=== PATIENT | male | born 1965 | race Caucasian/White ===

== ENCOUNTER 2017-02-14 09:57 | Emergency (ER) | payer SELFPAY ==
[~2017-02-14] VITALS: Ht 177.8 cm; Wt 78.0 kg
[2017-02-14 10:02] VITALS: BP 159/86; PULSE 75; RESP 17; TEMP 98; O2SAT 99
[2017-02-14 11:36] LABS: BLOOD, URINE SMALL (NEG); GLUCOSE,URINE NEG (NEG); KETONE, URINE NEG (NEG); NITRITE,URINE NEG (NEG)
[2017-02-14 11:45] LABS: METHOD OF COLLECTION CLEAN CATCH; URINE COLOR YELLOW (YELLW/STRAW)
[2017-02-14 11:46] LABS: COMMENT (UR) CULT NOT INDICATED; CULTURE IF INDICATED CULT NOT INDICATED; SQUAMOUS EPITHELIAL CELL URINE 0-5 /hpf (0-5)
--- NOTE | 2017-02-14 12:34 | RADRPT ---
EXAM DATE/TIME: 02/14/2017 17:02 [place] COMPARISON: No previous studies available for comparison. INDICATIONS : Testicular pain. MEDICAL HISTORY : Testicular pain. SURGICAL HISTORY : None. ENCOUNTER: Initial ACUITY: >1 year PAIN SCORE: 2/10 LOCATION: Bilateral testicles. MEASUREMENTS: RIGHT TESTICLE: 4.4 x 4.1 x 28cm LEFT TESTICLE: 3.5 x 3.0 x 3.5cm FINDINGS: RIGHT TESTICLE: Homogeneous echotexture without intra or extratesticular mass. Blood flow is symmetric and within no rmal limits. Positive hydrocele without varicocele. Epididymal cyst measures 1.5 x 1.0 x 1.8 cm and 9 .3 x 5.3 x 5.2 cm. LEFT TESTICLE: Homogeneous echotexture without intra or extratesticular mass. Blood flow is symmetric and within no rmal limits. There is a hydrocele. No varicocele. Epididymis is within normal limits. SCROTUM: Within normal limits. CONCLUSION: 1. Large right epididymal cysts. 2. Bilateral hydroceles. Elton Wolf MD on February 14, 2017 at 12:32 Board Certified Radiologist. This report was verified electronically.
[2017-02-14] MEDS ORDERED: CIPR-9 PO (12:57)
--- NOTE | 2017-02-14 12:57 | PD ---
HPI Chief Complaint: Complaint Time Seen by Provider: 11:45 Travel History International Travel<30 days: No Contact w/Intl Traveler<30days: No Traveled to known affect area: No History of Present Illness HPI 51-year-old male with chief complaint of hematuria 2 days. Patient also reports right sided testicular pain and swelling which is ongoing for the last 2 years. He reports he was told he had a hydrocele as a child. He is not followed by a urologist. Patient is uninsured. He reports the pain is constant , nonradiating, no aggravating or alleviating factors. Severity 4/10. He reports the pain in the testicle has steadily increased over the last several days. He denies fever, chills, abdominal pain, nausea, vomiting, or penile discharge. [facility] Past Medical History Diminished Hearing: No Musculoskeletal: Yes (BACK) Immunizations Current: No Tetanus Vaccination: Unknown Influenza Vaccination: No Past Surgical History Other Surgery: Yes (BACK) Social History Alcohol Use: Yes (3 DAILY) Tobacco Use: No Substance Use: Yes (POT) Allergies-Medications (Allergen,Severity, Reaction): Coded Allergies: Penicillins (Verified Allergy, Unknown, RASH, 02/14/17) Reported Meds & Prescriptions Reported Meds & Active Scripts Active No Active Prescriptions or Reported Medications Review of Systems Except as stated in HPI: all other systems reviewed are Neg General / Constitutional: No: Fever Eyes: No: Visual changes HENT: No: Headaches Cardiovascular: No: Chest Pain or Discomfort Respiratory: No: Shortness of Breath Gastrointestinal: No: Abdominal Pain Genitourinary: No: Dysuria Physical Exam Narrative GENERAL: Alert, well-appearing male in no acute distress SKIN: Focused skin assessment warm/dry. HEAD: Atraumatic. Normocephalic. EYES: Pupils equal and round. No scleral icterus. No injection or drainage. ENT: No nasal bleeding or discharge. Mucous membranes pink and moist. NECK: Trachea midline. No JVD. CARDIOVASCULAR: Regular rate and rhythm. No murmur appreciated. RESPIRATORY: No accessory muscle use. Clear to auscultation. Breath sounds equal bilaterally. GASTROINTESTINAL: Abdomen soft, non-tender, nondistended. Hepatic and splenic margins not palpable. GENITOURINARY: Circumcised. Testes descended bilaterally without evidence of rotation. Right testicle grossly enlarged, smooth, no palpable mass. No lesions or erythema. No urethral discharge. Data Data Last Documented VS Vital Signs Date Time Temp Pulse Resp B/P Pulse Ox O2 Delivery O2 Flow Rate FiO2 02/14/17 11:13 02/14/17 10:02 98.0 75 17 99 Orders Urinalysis - C+S If Indicated (02/14/17 11:26) Us Testicles W Doppler (02/14/17 ) Mandatory Outpatient Referral (02/14/17 12:41) Labs Laboratory Tests Test 02/14/17 11:30 Urine Collection Type CLEAN CATCH Urine Color YELLOW Urine Turbidity CLEAR Urine pH 6.0 Urine Specific [place] 1.014 Urine Protein NEG mg/dL Urine Glucose (UA) NEG mg/dL Urine Ketones NEG mg/dL Urine Occult Blood SMALL Urine Nitrite NEG Urine Bilirubin NEG Urine Leukocyte Esterase NEG Urine RBC 4-9 /hpf Urine Squamous Epithelial 0-5 /hpf Cells Microscopic Urinalysis Comment CULT NOT INDICATED Urine Collection Time 11:30 [facility] Medical Decision Making Medical Screen Exam Complete: Yes Emergency Medical Condition: Yes Differential Diagnosis UTI, hydrocele, testicular mass, testicular torsion Narrative Course 51-year-old male with chief complaint of hematuria 2 days. Patient also reporting right given pain and swelling for the last 2 years. He reports he was told at one point he had a hydrocele although he has never seen a urologist and cannot recall having an ultrasound of the testicles. On exam patient has a right grossly enlarged testicle with mild tenderness. UA reveal microscopic hematuria. Ultrasound of the testes reveal large right epididymal cyst. Patient will be treated empirically with Cipro for the hematuria a mandatory outpatient referral with urology was ordered. Diagnostic findings discussed with patient he verbalizes understanding and agrees to plan Diagnosis Primary Impression: Epididymal cyst Additional Impression: Hematuria Qualified Code: R31.9 - Hematuria, unspecified type Referrals: Primary Care Physician Additional Instructions: Take the antibiotics as prescribed. Take [id number] Motrin and/or Tylenol as needed for pain. You will be contacted by a member of [facility] to schedule you an appointment with urology. Scripts Ciprofloxacin (Cipro)500 Mg [id number] Mg PO BID #14 TAB Ref 0 Prov:Yuki Gibbons 02/14/17 Disposition: 01 DISCHARGE HOME Condition: Stable Yuki Gibbons Feb 14, 2017 12:57
== END 2017-02-14 13:12 | disposition home or self-care (01) ==
LOC: PHED 09:57 → PHEFT 13:12
DX: R31.9 Hematuria, unspecified (principal)
CPT/HCPCS: 76870; 81001; 93975; 99284